=== PATIENT | female | born 1945 | race Caucasian/White ===

== ENCOUNTER → 2018-12-24 | Outpatient (CLI) | payer MEDICARE ==
[~2018-12-24] MED LIST: Advil200 M1 PO; CALCAVITD PO; CHOL10002 PO; CYAN100 PO; Canasa1000 MG PR; ESOM20 PO; HYDR1TAB94 PO; Lialda1.2 GM PO; MAGOXI400 PO; NEBI5 PO
== END | disposition home or self-care (01) ==
LOC: LAB 11:03 → LAB SHORT 11:03
DX: R10.9 Unspecified abdominal pain (principal)
CPT/HCPCS: 87086

== ENCOUNTER 2019-05-26 08:27 | Day surgery (SDC) | payer MEDICARE ==
[2019-05-26 10:24] LABS: Performing Lab VERACYTE; Test Name FNA
== END 2019-05-26 22:51 | disposition home or self-care (01) ==
LOC: US 08:27
PROVIDERS: Family Medicine
DX: E04.1 Nontoxic single thyroid nodule (principal)
CPT/HCPCS: 10005

== ENCOUNTER 2019-07-14 09:32 | Day surgery (SDC) | payer MEDICARE ==
[~2019-07-14] VITALS: Ht 165.1 cm; Wt 94.7 kg
--- NOTE | 2019-07-14 15:37 | NUR ---
Patient up to Ambulate independently. Gait steady. Discharge instructions reviewed with patient AND VIA PHONE. . Patient verbalizes understanding. Copy given to patient to take home. PT GIVEN NON ADHERANT DRESSING X2 AND MEFIX TAPE FOR DRESSING CHANGE PRN PER SURGEON ORDERS. Discharged via wheelchair to private car for ride home WITH .
== END 2019-07-14 22:38 | disposition home or self-care (01) ==
LOC: ORSCMMR 09:32 → ORD 11:00 → ORSCMMR 22:38
PROVIDERS: Otolaryngology
PROC: 0GSR0ZZ Reposition Parathyroid Gland, Open Approach (ICD-10-PCS; principal; 2019-07-14 11:00)
PROC: 0GTK0ZZ Resection of Thyroid Gland, Open Approach (ICD-10-PCS; principal; 2019-07-14 11:00)
PROC: 0GBJ0ZZ Excision of Thyroid Gland Isthmus, Open Approach (ICD-10-PCS; principal; 2019-07-14 11:00)
DX: C73 Malignant neoplasm of thyroid gland (principal); I10 Essential (primary) hypertension; K21.9 Gastro-esophageal reflux disease without esophagitis; Z79.899 Other long term (current) drug therapy
CPT/HCPCS: 88307; A9270-GY; J1100; J2250; J2405; J2704; J2765; J3010; J7120

== ENCOUNTER → 2019-11-16 | Outpatient (CLI) | payer MEDICARE ==
[2019-11-16 19:14] LABS: Source, Urine Clean Catch
[2019-11-16 20:09] LABS: Appearance, Urine Clear (Clear); Bilirubin, Urine Neg (Neg); Blood, Urine 1+ (Neg); Color, Urine Amber (P-Yellow); Glucose Qualitative, Urine Neg (Neg); Ketones, Urine Neg (Neg); Leukocyte Esterase, Urine Neg (Neg); Nitrite, Urine Neg (Neg); Protein, Urine Neg (Neg); Urobilinogen, Urine NORM (Normal)
[2019-11-16 20:19] LABS: Bacteria Mod /hpf; Red Blood Cells, Urine 0-2 /hpf (0-2); Squamous Epithelial Cells Few /hpf (Few); White Blood Cells, Urine 0-2 /hpf (0-5)
== END | disposition home or self-care (01) ==
LOC: LAB SHORT 19:12 → LAB 19:12
PROVIDERS: Internal Medicine
DX: K51.30 Ulcerative (chronic) rectosigmoiditis without complications (principal)
CPT/HCPCS: 81001; 87086

== ENCOUNTER → 2019-12-15 | Outpatient (CLI) | payer MEDICARE | END | disposition home or self-care (01) | LOC: PLD 11:12 → LAB SHORT 11:12 | DX: D48.5 Neoplasm of uncertain behavior of skin (principal) | CPT/HCPCS: 88305 ==

== ENCOUNTER → 2021-12-14 | Outpatient (CLI) | payer MEDICARE | END | disposition home or self-care (01) | LOC: PLD 12:34 → LAB SHORT 12:34 | DX: D22.62 Melanocytic nevi of left upper limb, including shoulder (principal) | CPT/HCPCS: 88305 ==